=== PATIENT | male | born 1955 | race Hispanic/Latino ===

== ENCOUNTER 2023-09-18 09:54 | Emergency (ER) | payer OTHER ==
[2023-09-18 10:29] LABS: Absolute Lymphocytes (CBC) 1.5 K/uL (0.7-4.9); Absolute Monocytes 0.2 K/uL (0.1-1.3); Absolute Neutrophil 2.3 K/uL (1.8-8.0); Basophils % 0.5 % (0-1.3); Eosinophils % 0.7 % (0-4.4); Hemoglobin 11.8 g/dL (13.6-17.9); Lymphocytes % 37.5 % (15.3-44.8); MCH 32.4 pg (27.0-35.0); MCHC 33.8 g/dL (32.0-36.0); MCV 95.7 fL (80-100); MPV 8.4 fL (7.6-11.3); Monocytes % 5.5 % (3.3-12.3); Neutrophils % 55.8 % (41.7-73.7); Nucleated Red Blood Cells % 0.1 % (0-0); Platelets 135 thou/uL (152-406); RBC Red Blood Cell Count 3.65 M/uL (4.33-5.43); Red Cell Distribution Width 13.8 % (12.1-15.2)
[2023-09-18 10:39] LABS: PT Prothrombin Time 13.5 SECONDS (9.5-12.5); PTT, Activated Partial Thromb 29.4 SECONDS (24.3-36.9); Protime INR 1.23
[2023-09-18 10:48] LABS: Specific Gravity 1.026 (1.005-1.030); Sqamous Epithelial <5 /HPF (None Seen); Urine Bacteria <20 /HPF (<20); Urine Bilirubin NEGATIVE (Negative); Urine Blood Negative (Negative); Urine Clarity Turbid (Clear); Urine Color Yellow (Yellow); Urine Culture Reflex Order NOT NEEDED; Urine Glucose NEGATIVE (Negative); Urine Ketones NEGATIVE (Negative); Urine Microscopic Reflex YN ORDER UMIC; Urine Mucus 2+ /HPF (None Seen); Urine Nitrite NEGATIVE (Negative); Urine Protein 1+ (Negative); Urine Urobilinogen 1+ (Normal); Urine WBC <5 /HPF (<5)
[2023-09-18 10:49] LABS: AST/SGOT 17 U/L (15-37); Albumin 3.3 g/dL (3.4-5.0); Alkaline Phosphatase 76 U/L (45-117); Anion Gap 6.7 mEq/L (5.0-15.0); BUN Blood Urea Nitrogen 24 mg/dL (7-18); Bicarbonate 26 mEq/L (21-32); Bilirubin Direct 0.1 mg/dL (0-0.2); Bilirubin Indirect, Calculated 0.4 mg/dL (0.2-0.8); Bilirubin Total 0.5 mg/dL (0.2-1.0); Globulin 3.2 g/dL (2.3-3.5); Glomerular Filtration Rate 97 ml/min (=/>90); Glucose Level 103 mg/dL (74-106); Potassium 3.7 mEq/L (3.5-5.1); Protein, Total 6.5 g/dL (6.4-8.2); Sodium Level 141 mEq/L (136-145)
[2023-09-18 10:54] LABS: ALT/SGPT < 10 U/L (16-61); Troponin High Sensitivity < 3.0 pg/mL (<58.9)
--- NOTE | 2023-09-18 11:06 | RAD REPORT ---
EXAM DESCRIPTION: RAD - Chest Single View - 09/18/2023 10:46 am CLINICAL HISTORY: weaknes COMPARISON: No comparisons FINDINGS: Lines: None. Lungs: No evidence of edema or pneumonia. Pleural: No significant pleural effusions or pneumothorax. Cardiac: The heart size is within normal limits. Mediastinum: Within normal limits. Bones: No acute fractures. Other: None IMPRESSION: No acute cardiopulmonary disease.
--- NOTE | 2023-09-18 11:39 | RAD REPORT ---
EXAM DESCRIPTION: CT - Head Brain Wo Cont - 09/18/2023 11:34 am CLINICAL HISTORY: WEAKNESS COMPARISON: No comparisons TECHNIQUE: All CT scans are performed using dose optimization technique as appropriate and may inclu de automated exposure control or mA/KV adjustment according to patient size. FINDINGS: No intracranial hemorrhage, hydrocephalus or extra-axial fluid collection.No areas of brai n edema or evidence of midline shift. Age advanced cerebral atrophy. Mild to moderate chronic small v essel ischemic changes. The paranasal sinuses and mastoids are clear. The calvarium is intact. IMPRESSION: No acute intracranial abnormality.
--- NOTE | 2023-09-18 13:33 | EDPHYS ---
Physician Documentation [facility] Name: Gaston Galdamez Age: 67 yrs Sex: Male : 1955 Arrival Date: 09/18/2023 Time: 09:54 Bed 13 Private MD: ED Physician Chaz Chappell HPI: 09/17 10:23 This 67 yrs old Male presents to ER via EMS with complaints of Near Syncope. kb 10:23 Pt is a 67 year old male who was sent in by [facility] staff for weakness that began kb this morning. residential staff reports pt is at baseline mentation, but seems more weak than normal. . Historical: - Allergies: 10:06 No Known Allergies; me1 - PMHx: 10:06 Dementia; Parkinson's disease; me1 - Immunization history:: Adult Immunizations up to date. - Infectious Disease History:: Denies. - Social history:: Smoking status: unknown. ROS: 10:21 Constitutional: As per HPI kb Exam: 10:21 Constitutional: This is a well developed, well nourished patient who is awake, alert, kb and in no acute distress. Head/Face: Normocephalic, atraumatic. ENT: Moist Mucous membranes Cardiovascular: Regular rate Respiratory: Respirations even and unlabored. No increased work of breathing. Talking in full sentences Abdomen/GI: Soft, non-tender. No distention Skin: Warm, dry with normal turgor. Normal color. MS/ Extremity: Pulses equal, no cyanosis. Neurovascular intact. Full, normal range of motion. 10:21 ECG was reviewed by the Attending Physician. 10:22 Neuro: Orientation: no acute changes, per EMS, Motor: moves all fours, kb Vital Signs: 10:02 BP 118 / 82; Pulse 55; Resp 16; Temp 97.9; Pulse Ox 100% on R/A; Weight 65.77 kg; me1 Height 5 ft. 8 in. ; Pain 0/10; 11:00 BP 111 / 68; Pulse 57; Resp 12; Pulse Ox 100% on R/A; me1 12:00 BP 118 / 77; Pulse 55; Resp 18; Pulse Ox 100% on R/A; me1 13:00 BP 114 / 70; Pulse 70; Resp 13; Pulse Ox 100% on R/A; me1 13:54 BP 120 / 74; Pulse 58; Resp 17; Temp 98(TE); Pulse Ox 100% ; me1 10:02 Body Mass Index 22.05 (65.77 kg, 172.72 cm) me1 10:02 Pain Scale: Adult me1 MDM: 09:58 Patient medically screened. kb 10:22 Data reviewed: vital signs, nurses notes. kb 10:24 Historians other than the Patient: EMS: [facility]. kb 13:31 Differential diagnosis: cardiac arrhythmia, generalized weakness, hypovolemia, kb near-syncope. Consideration of Admission/Observation Escalation of care including admission/observation considered. admission considered for weakness, but family states pt is acting normally, labs reassuring. Management of patient was discussed with the following: Leather Coater: Dr Pina boston with discharge home. Counseling: I had a detailed discussion with the patient and/or guardian regarding the historical points, exam findings, and any diagnostic results supporting the discharge/admit diagnosis, lab results, radiology results, the need for outpatient follow up, a family practitioner, to return to the emergency department if symptoms worsen or persist or if there are any questions or concerns that arise at home. ED course: Family at bedside at this time. States pt is acting normally to them. . 04 09:59 Order name: Basic Metabolic Panel; Complete Time: 10:55 kb 09/17 09:59 Order name: CBC with Diff; Complete Time: 10:46 kb 09/17 09:59 Order name: Hepatic Function; Complete Time: 10:55 kb 09/17 09:59 Order name: Magnesium; Complete Time: 10:55 kb 09/17 09:59 Order name: Protime (+inr); Complete Time: 10:46 kb 09/17 09:59 Order name: Ptt, Activated; Complete Time: 10:46 kb 09/17 09:59 Order name: Troponin High Sensitivity; Complete Time: 10:55 kb 09/17 09:59 Order name: Urinalysis w/ reflexes; Complete Time: 10:49 kb 09/17 09:59 Order name: Chest Single View XRAY; Complete Time: 11:15 kb 09/17 11:16 Order name: CT Head Brain wo Cont; Complete Time: 11:46 kb 09/17 12:40 Order name: EKG; Complete Time: 12:41 kb 09/17 09:59 Order name: Cardiac monitoring; Complete Time: 10:22 kb 09/17 09:59 Order name: EKG - Nurse/Tech; Complete Time: 12:40 kb 09/17 09:59 Order name: IV Saline Lock; Complete Time: 10:20 kb 09/17 09:59 Order name: Labs collected and sent; Complete Time: 12:40 kb 09/17 09:59 Order name: NPO; Complete Time: 10:20 kb 09/17 09:59 Order name: O2 Per Protocol; Complete Time: 10:20 kb 09/17 09:59 Order name: O2 Sat Monitoring; Complete Time: 10:20 kb 09/17 12:40 Order name: EKG - Nurse/Tech; Complete Time: 13:16 kb EC:21 Rate is 54 beats/min. Rhythm is regular. QRS [place] is Normal. MT interval is prolonged kb at 314 msec. QRS interval is normal at 72 msec. QT interval is normal at 405 msec. Administered Medications: No medications were administered Disposition Summary: 09/18/23 13:32 Discharge Ordered Notes: Location: Home kb Condition: Stable kb Diagnosis - Weakness kb Followup: kb - With: Emergency Department - When: As needed - Reason: Worsening of condition Followup: kb - With: Private Physician - When: 2 - 3 days - Reason: Recheck today's complaints, Continuance of care, Re-evaluation by your physician Discharge Instructions: - Discharge Summary Sheet kb - Weakness, [id number] kb Forms: - Medication Reconciliation Form kb - Thank You Letter kb - Antibiotic Education kb - Prescription Opioid Use kb - Patient Portal Instructions kb - Leadership Thank You Letter kb Signatures: Dispatcher [employer] Paris Echevarria FNP-C FNP-Donna Bolivar, RN RN me1 Corrections: (The following items were deleted from the chart) 10:00 10:00 Chest Single View+RAD.RAD.BRZ ordered. [facility]
--- NOTE | 2023-09-18 13:33 | ER ---
Nurse's Notes [facility] Name: Gaston Galdamez Age: 67 yrs Sex: Male : 1955 Arrival Date: 09/18/2023 Time: 09:54 Bed 13 Private MD: Diagnosis: Weakness Presentation: 09/17 10:02 Chief complaint: EMS states: toned out for episode of weakness and diaphoresis while me1 sitting. No balance when standing. Coronavirus screen:. Ebola Screen: No symptoms or risks identified at this time. Initial Sepsis Screen: Does the patient meet any 2 criteria? No. Patient's initial sepsis screen is negative. Does the patient have a suspected source of infection? No. Patient's initial sepsis screen is negative. Risk Assessment: Do you want to hurt yourself or someone else? Patient reports no desire to harm self or others. Onset of symptoms was September 18, 2023. 10:02 Method Of Arrival: EMS: [place] [id number] 10:02 Acuity: NAWAF 3 me1 Triage Assessment: 10:06 General: Appears comfortable, well groomed, well developed, well nourished, Behavior is me1 cooperative, appropriate for age, anxious. Pain: Denies pain. Neuro: Level of Consciousness is awake, alert, Oriented to person. Cardiovascular: Capillary refill < 3 seconds. Respiratory: Airway is patent Respiratory effort is even, unlabored, Respiratory pattern is regular, symmetrical. GI: No signs and/or symptoms were reported involving the gastrointestinal system. : No signs and/or symptoms were reported regarding the genitourinary system. Derm: Skin is diaphoretic, Skin is pink. Musculoskeletal: Reports per report patient did not have balance when standing and had sudden onset of weakness. Historical: - Allergies: 10:06 No Known Allergies; me1 - PMHx: 10:06 Dementia; Parkinson's disease; me1 - Immunization history:: Adult Immunizations up to date. - Infectious Disease History:: Denies. - Social history:: Smoking status: unknown. Screenin:14 [facility] ED Fall Risk Assessment (Adult) History of falling in the last 3 months, me1 including since admission No falls in past 3 months (0 pts) Confusion or Disorientation No (0 pts) Intoxicated or Sedated No (0 pts) Impaired Gait No (0 pts) Mobility Assist Device Used No (0 pt) Altered Elimination No (0 pt) Score/Fall Risk Level 0 - 2 = Low Risk Maintained a safe environment, Provided non-skid footwear, Hourly rounding (assess needs \T\ fall precautionary measures) done. Abuse screen: Denies threats or abuse. Nutritional screening: No deficits noted. Tuberculosis screening: No symptoms or risk factors identified. Assessment: 10:14 General: See triage assessment. . me1 Vital Signs: 10:02 BP 118 / 82; Pulse 55; Resp 16; Temp 97.9; Pulse Ox 100% on R/A; Weight 65.77 kg; me1 Height 5 ft. 8 in. ; Pain 0/10; 11:00 BP 111 / 68; Pulse 57; Resp 12; Pulse Ox 100% on R/A; me1 12:00 BP 118 / 77; Pulse 55; Resp 18; Pulse Ox 100% on R/A; me1 13:00 BP 114 / 70; Pulse 70; Resp 13; Pulse Ox 100% on R/A; me1 13:54 BP 120 / 74; Pulse 58; Resp 17; Temp 98(TE); Pulse Ox 100% ; me1 10:02 Body Mass Index 22.05 (65.77 kg, 172.72 cm) me1 10:02 Pain Scale: Adult oh1 ED Course: 09:58 Patient arrived in ED. kb 09:58 Paris Lanza FNP-C is [facility]. kb 09:58 Chaz Chappell MD is Attending Physician. kb 10:01 Donna Cortez, JONATHAN is Primary Nurse. me1 10:06 Triage completed. me1 10:14 Patient has correct armband on for positive identification. Bed in low position. Call oh1 light in reach. Side rails up X2. Provided Education on: POC. Verbalized understanding.. 10:14 Arm band placed on. me1 10:14 No provider procedures requiring assistance completed. Maintain EMS IV. Dressing me1 intact. Good blood return noted. Site clean \T\ dry. Gauge \T\ site: 20g RFA. 10:21 Client placed on continuous cardiac and pulse oximetry monitoring. NIBP monitoring me1 applied. monitor tech on. Pulse ox on. NIBP on. 10:21 Initial lab(s) drawn, by ED staff, sent to lab. EKG done, by ED staff, reviewed by me1 Paris AGRAWAL. 10:38 Repositioned patient. Cleaned of incontinence. jg11 10:38 Urine collected: straight cath specimen, clear, katarina colored. Straight cath inserted, jg11 using sterile technique, Patient tolerated well. 10:48 Chest Single View XRAY In Process Unspecified. EDMS 11:36 CT Head Brain wo Cont In Process Unspecified. EDMS 13:16 EKG done, by ED staff, reviewed by Paris AGRAWAL. me1 14:18 IV discontinued, intact, bleeding controlled, No redness/swelling at site. Pressure me1 dressing applied. Administered Medications: No medications were administered Medication: 10:14 VIS not applicable for this client. me1 Outcome: 13:32 Discharge ordered by . john 14:17 Discharged to home via wheelchair, with family, me1 14:17 Condition: stable 14:17 Discharge instructions given to family, Instructed on discharge instructions, follow up and referral plans. Demonstrated understanding of instructions, follow-up care, 14:18 Patient left the ED. me1 Signatures: Dispatcher [employer] Paris Echevarria, [employer] PARAPROFESSIONAL-C INNOVATIONS PARAPROFESSIONAL-CkDonna Hassan, RN RN me1 John Paul Stallworth jg11
[2023-09-18 17:40] VITALS: BP 120/74; TEMP 98; O2SAT 100
--- NOTE | 2023-09-20 12:46 | EKG ---
Test Date: 2023-09-18 Test Time: 13:13:16 [employer]ather Production Artisan: MEASUREMENT RESULTS: Intervals: Rate: 62 FL: 82 QRSD: 76 QT: 400 QTc: 406 [place]: P: FL: 82 QRS: 58 T: 82 INTERPRETIVE STATEMENTS: Sinus rhythm with short FL Nonspecific ST and T wave abnormality Abnormal ECG No previous ECG available for comparison Electronically Signed On 09-20-23 12:41:44 CDT by John Heller
--- NOTE | 2023-09-20 12:47 | EKG ---
Test Date: 2023-09-18 Test Time: 10:02:52 [employer] Professor: BIPIN MEASUREMENT RESULTS: Intervals: Rate: 54 DC: 314 QRSD: 72 QT: 428 QTc: 405 [place]: P: DC: 314 QRS: 57 T: 73 INTERPRETIVE STATEMENTS: Sinus bradycardia with 1st degree AV block Otherwise normal ECG No previous ECG available for comparison Electronically Signed On 09-20-23 12:42:21 CDT by John Heller
== END 2023-09-18 14:18 | disposition home or self-care (01) ==
LOC: ER 09:54
DX: R53.1 Weakness (principal); R55 Syncope and collapse; G20.A1 Parkinson's disease without dyskinesia, without mention of fluctuations; F02.80 Dementia in other diseases classified elsewhere, unspecified severity, without behavioral disturbance, psychotic disturbance, mood disturbance, and anxiety
CPT/HCPCS: 36415; 51702; 70450; 71045; 80048; 80076; 81001; 83735; 84484; 85025; 85610; 85730; 93005; 99285

== ENCOUNTER 2023-09-18 20:39 | Emergency (ER) | payer OTHER ==
[2023-09-18 21:09] LABS: Absolute Lymphocytes (CBC) 1.7 K/uL (0.7-4.9); Absolute Monocytes 0.3 K/uL (0.1-1.3); Absolute Neutrophil 2.5 K/uL (1.8-8.0); Basophils % 0.5 % (0-1.3); Eosinophils % 0.6 % (0-4.4); Hematocrit 33.4 % (39.6-49.0); Hemoglobin 11.2 g/dL (13.6-17.9); Lymphocytes % 37.3 % (15.3-44.8); MCH 32.2 pg (27.0-35.0); MCHC 33.7 g/dL (32.0-36.0); MCV 95.6 fL (80-100); MPV 9.1 fL (7.6-11.3); Monocytes % 7.5 % (3.3-12.3); Neutrophils % 54.1 % (41.7-73.7); Nucleated Red Blood Cells % 0.1 % (0-0); Platelets 145 thou/uL (152-406); RBC Red Blood Cell Count 3.49 M/uL (4.33-5.43)
[2023-09-18 21:23] LABS: Albumin 3.4 g/dL (3.4-5.0); Anion Gap 6.7 mEq/L (5.0-15.0); Bilirubin Total 0.4 mg/dL (0.2-1.0); Globulin 3.4 g/dL (2.3-3.5); Potassium 3.7 mEq/L (3.5-5.1); Protein, Total 6.8 g/dL (6.4-8.2)
[2023-09-18 21:31] LABS: Renal Epithelial <5 /HPF (None Seen); Specific Gravity 1.025 (1.005-1.030); Sqamous Epithelial <5 /HPF (None Seen); Urine Bacteria <20 /HPF (<20); Urine Bilirubin NEGATIVE (Negative); Urine Blood 3+ (OVER) (Negative); Urine Clarity Extremely Turbid (Clear); Urine Color Yellow (Yellow); Urine Culture Reflex Order NOT NEEDED; Urine Glucose NEGATIVE (Negative); Urine Ketones TRACE (Negative); Urine Micro Reflex YN NO BILL MICROSCOPIC; Urine Mucus 1+ /HPF (None Seen); Urine Nitrite NEGATIVE (Negative); Urine Protein 1+ (Negative); Urine RBC >50 /HPF (None Seen); Urine Urobilinogen 1+ (Normal)
--- NOTE | 2023-09-18 21:55 | EDPHYS ---
Physician Documentation [facility] Name: Gaston Galdamez Age: 67 yrs Sex: Male : 1955 Arrival Date: 09/18/2023 Time: 20:39 Bed 5 Private MD: ED Physician Mg Patton HPI: 09/17 21:28 This 67 yrs old Male presents to ER via EMS with complaints of hematuria. rt 21:28 Patient was seen in the ED earlier today for generalized weakness, had a negative rt workup, workup to include straight catheterization. Patient with back to nursing today, nurse noticed some blood in his diaper. No other acute complaints, symptoms are mild in severity, no other aggravating or elevating factors.. Historical: - Allergies: 20:44 No Known Allergies; jb4 - PMHx: 20:44 Dementia; Parkinson's disease; jb4 - Immunization history:: Adult Immunizations unknown. - Infectious Disease History:: Denies. - Social history:: Smoking status: unknown. - Family history:: not pertinent. ROS: 21:28 Unable to obtain ROS due to baseline dementia, rt Exam: 21:28 Constitutional: This is a well developed, well nourished patient who is awake, alert, rt and in no acute distress. Chest/axilla: Normal chest wall appearance and motion. Nontender with no deformity. No lesions are appreciated. Cardiovascular: Regular rate and rhythm with a normal S1 and S2. No gallops, murmurs, or rubs. Normal PMI, no JVD. No pulse deficits. Respiratory: Lungs have equal breath sounds bilaterally, clear to auscultation and percussion. No rales, rhonchi or wheezes noted. No increased work of breathing, no retractions or nasal flaring. Abdomen/GI: Soft, non-tender, with normal bowel sounds. No distension or tympany. No guarding or rebound. No evidence of tenderness throughout. Skin: Warm, dry with normal turgor. Normal color with no rashes, no lesions, and no evidence of cellulitis. MS/ Extremity: Pulses equal, no cyanosis. Neurovascular intact. Full, normal range of motion. Vital Signs: 20:41 BP 130 / 77; Pulse 57; Resp 16; Temp 97.5; Pulse Ox 97% on R/A; jb4 21:00 BP 112 / 77; Pulse 56; Resp 16; Pulse Ox 99% on R/A; jb4 22:14 BP 120 / 78; Pulse 58; Resp 16; Pulse Ox 100% on R/A; jb4 MDM: 20:42 Patient medically screened. rt 23:27 Differential Diagnosis UTI, traumatic catheterization. Data reviewed: vital signs, lab rt test result(s). Test considered but Not performed: CT: Clear chronologic association with catheterization, do not believe that CT scan is indicated.. Care significantly affected by the following chronic conditions: Dementia. Counseling: I had a detailed discussion with the patient and/or guardian regarding the historical points, exam findings, and any diagnostic results supporting the discharge/admit diagnosis, lab results, the need for outpatient follow up, to return to the emergency department if symptoms worsen or persist or if there are any questions or concerns that arise at home. 09/17 20:43 Order name: CBC with Diff; Complete Time: 21:32 rt 09/17 20:43 Order name: CMP; Complete Time: 21:32 rt 09/17 20:43 Order name: UAM; Complete Time: 21:32 rt Administered Medications: 22:08 Drug: Cephalexin PO 500 mg PO once Route: PO; jb4 22:08 Follow up: Response: Medication administered at discharge. jb4 Disposition Summary: 09/18/23 21:54 Discharge Ordered Notes: Location: Home rt Condition: Stable rt Diagnosis - Gross hematuria rt Followup: rt - With: Private Physician - When: 2 - 3 days - Reason: Discharge Instructions: - Discharge Summary Sheet rt - Hematuria, Adult rt Forms: - Medication Reconciliation Form rt - Thank You Letter rt - Antibiotic Education rt - Prescription Opioid Use rt - Patient Portal Instructions rt - Leadership Thank You Letter rt Prescriptions: - Cephalexin 500 mg Oral capsule - take 1 capsule ORAL route every 8 hours for 7 days; 21 capsule; Refills: 0, rt Product Selection Permitted Signatures: Dispatcher [employer] Joel Amaya RN RN jb4 Mg Patton MD MD rt Corrections: (The following items were deleted from the chart) 20:44 20:44 CBC+H.LAB.BRZ ordered. EDMS EDMS 20:44 20:44 COMPREHENSIVE METABOLIC PANEL+C.LAB.BRZ ordered. EDMS EDMS 20:44 20:44 Urinalysis W/Microscopic+U.LAB.BRZ ordered. EDMS EDMS
--- NOTE | 2023-09-18 21:55 | ER ---
Nurse's Notes [facility] Name: Gaston Galdamez Age: 67 yrs Sex: Male : 1955 Arrival Date: 09/18/2023 Time: 20:39 Bed 5 Private MD: Diagnosis: Gross hematuria Presentation: 09/17 20:41 Chief complaint: EMS states: Pt was sent here this morning for sweating and AMS, jb4 discharged back to [facility]. The nurse was changing him tonight and noticed blood in the urine. Coronavirus screen: At this time, the client does not indicate any symptoms associated with coronavirus-19. Ebola Screen: No symptoms or risks identified at this time. Initial Sepsis Screen: Does the patient meet any 2 criteria? No. Patient's initial sepsis screen is negative. Does the patient have a suspected source of infection? No. Patient's initial sepsis screen is negative. Risk Assessment: Do you want to hurt yourself or someone else? Patient reports no desire to harm self or others. Onset of symptoms was September 18, 2023. Transition of care: patient was not received from another setting of care. 20:41 Method Of Arrival: EMS: [facility] jb4 20:41 Acuity: NAWAF 3 jb4 Triage Assessment: 20:44 General: Appears in no apparent distress. comfortable, Behavior is calm, cooperative, jb4 appropriate for age. Pain: Unable to use pain scale. FLACC scale score is 0 out of 10. EENT: No signs and/or symptoms were reported regarding the EENT system. Neuro: Level of Consciousness is awake, alert, Oriented to person. Cardiovascular: Patient's skin is warm and dry. Respiratory: Airway is patent Respiratory effort is even, unlabored, Respiratory pattern is regular, symmetrical. GI: No signs and/or symptoms were reported involving the gastrointestinal system. : Reports Staff at [facility] reports blood in urine. Derm: Skin is intact, Skin is pink, warm \T\ dry. Musculoskeletal: Circulation, motion, and sensation intact. Range of motion: intact in all extremities. Historical: - Allergies: 20:44 No Known Allergies; jb4 - PMHx: 20:44 Dementia; Parkinson's disease; jb4 - Immunization history:: Adult Immunizations unknown. - Infectious Disease History:: Denies. - Social history:: Smoking status: unknown. - Family history:: not pertinent. Screenin:47 [facility] ED Fall Risk Assessment (Adult) History of falling in the last 3 months, jb4 including since admission No falls in past 3 months (0 pts) Confusion or Disorientation Yes (5 pts) Intoxicated or Sedated No (0 pts) Impaired Gait No (0 pts) Mobility Assist Device Used No (0 pt) Altered Elimination No (0 pt) Score/Fall Risk Level 3 or more points = High Risk Oriented to surroundings, Maintained a safe environment. Abuse screen: Denies threats or abuse. Nutritional screening: No deficits noted. Tuberculosis screening: No symptoms or risk factors identified. Assessment: 20:47 Reassessment: See triage note. jb4 21:12 : Urine is cloudy, blood tinged. jb4 22:08 Reassessment: Pt remains A\T\Ox1. D/c and follow up instructions given to family. jb4 Verbalized understanding of instructions. Vital Signs: 20:41 BP 130 / 77; Pulse 57; Resp 16; Temp 97.5; Pulse Ox 97% on R/A; jb4 21:00 BP 112 / 77; Pulse 56; Resp 16; Pulse Ox 99% on R/A; jb4 22:14 BP 120 / 78; Pulse 58; Resp 16; Pulse Ox 100% on R/A; jb4 ED Course: 20:41 Patient arrived in ED. jb4 20:42 Mg Patton MD is Attending Physician. rt 20:44 Triage completed. jb4 20:44 Arm band placed on right wrist. jb4 20:47 Patient has correct armband on for positive identification. Bed in low position. Call jb4 light in reach. Side rails up X 1. Provided Education on: Family educated on plan of care.. 20:47 No provider procedures requiring assistance completed. jb4 21:12 Joel Macdonald, JONATHAN is Primary Nurse. jb4 21:12 Initial lab(s) drawn, by me, sent to lab. Urine collected: straight cath specimen, jb4 katarina colored, blood tinged, Amount Returned: 200mL. 22:08 IV discontinued, intact, bleeding controlled, No redness/swelling at site. Pressure jb4 dressing applied. Administered Medications: 22:08 Drug: Cephalexin PO 500 mg PO once Route: PO; jb4 22:08 Follow up: Response: Medication administered at discharge. jb4 Medication: 20:47 VIS not applicable for this client. jb4 Outcome: 21:54 Discharge ordered by . rt 22:08 Discharged to longterm. jb4 22:08 Condition: stable 22:08 Discharge instructions given to patient, Instructed on discharge instructions, follow up and referral plans. medication usage, Demonstrated understanding of instructions, follow-up care, medications, Prescriptions given X 1, 22:15 Patient left the ED. jb4 Signatures: Joel Macdonald RN RN jb4 Mg Patton MD MD rt
[2023-09-18] MEDS ORDERED: CEPHALEXIN 250 MG CAP ONE (22:00)
[2023-09-19 05:00] VITALS: BP 120/78; TEMP 97.5; O2SAT 100
== END 2023-09-18 22:15 | disposition home or self-care (01) ==
LOC: ER 20:39
DX: R31.0 Gross hematuria (principal); G20.A1 Parkinson's disease without dyskinesia, without mention of fluctuations; F02.80 Dementia in other diseases classified elsewhere, unspecified severity, without behavioral disturbance, psychotic disturbance, mood disturbance, and anxiety
CPT/HCPCS: 36415; 80053; 81001; 85025; 99284

== ENCOUNTER 2024-02-12 07:49 | Emergency (ER) | payer OTHER ==
--- NOTE | 2024-02-12 08:39 | RAD REPORT ---
EXAM DESCRIPTION: CT - Head C Spine Mpr Wo Con - 02/12/2024 8:28 am CLINICAL HISTORY: Head and neck injury status post fall. Head and neck pain COMPARISON: November [address] TECHNIQUE: Computed axial tomography of the head and cervical spine was obtained. Sagittal and coronal reconstruction was performed. All CT scans are performed using dose optimization technique as appropriate and may include automated exposure control or mA/KV adjustment according to patient size. FINDINGS: An intracranial bleed is not seen. The ventricles are normal in caliber. Mild to moderate low-density within periventricular, subcortical white matter probably ischemic stoddard es secondary small vessel disease [id number] cerebral atrophy is present. An extra-axial fluid collection is not noted. Fluid within the visualized sinuses and mastoids is not seen A cervical fracture is not visualized. No dislocation is noted. Mild anterior subluxation C7 on T1 ma y chronic IMPRESSION: No acute intracranial abnormality is seen. A cervical fracture is not visualized. If the patient continues to have symptoms to suggest intracranial /spinal cord pathology then MRI wou ld be recommended
--- NOTE | 2024-02-12 09:17 | RAD REPORT ---
EXAM DESCRIPTION: RAD - Pelvis - 02/12/2024 8:51 am CLINICAL HISTORY: Pelvic pain status post injury FINDINGS: Osteoporosis Junction of medial aspect of the right femoral head and neck has an unusual appearance probably secon liana to positioning. If the patient has clinical symptoms to suggest a right hip fracture then jacquelina harish x-rays of the right hip would be recommended Otherwise, no fracture or dislocation noted
--- NOTE | 2024-02-12 10:44 | RAD REPORT ---
EXAM DESCRIPTION: CT - Pelvis Wo Cont - 02/12/2024 10:30 am CLINICAL HISTORY: Pelvic pain status post fall COMPARISON: X-ray February 12, 2024 TECHNIQUE: Computed axial tomography of the pelvis was obtained. Coronal and sagittal reconstruction performed All CT scans are performed using dose optimization technique as appropriate and may include automated exposure control or mA/KV adjustment according to patient size. FINDINGS: No fracture or dislocation is seen. No significant hip joint effusion Rectum distended with stool measuring 9.5 centimeters Moderate to marked prostatic enlargement IMPRESSION: No fracture seen
--- NOTE | 2024-02-12 11:05 | EDPHYS ---
Physician Documentation [facility] Name: Gaston Galdamez Age: 68 yrs Sex: Male : 1955 Arrival Date: 02/12/2024 Time: 07:49 Bed 8 Private MD: ED Physician Mg Patton HPI: 02/11 11:26 This 68 yrs old Male presents to ER via EMS with complaints of Fall Injury. rt 11:26 History limited due to patient with advanced dementia. Patient reportedly had a fall rt [facility] the [facility] today. No reports of injury. No other reported complaints, symptoms are mild in severity, no other aggravating elevating factors.. Historical: - Allergies: 07:57 No Known Allergies; ko1 - Home Meds: :57 Unable to obtain [Active]; ko1 - PMHx: :57 Dementia; Parkinson's disease; ko1 - PSHx: :57 Unable to Obtain; ko1 - Immunization history:: Adult Immunizations unknown. - Infectious Disease History:: unknown. - Social history:: Smoking status: unknown. ROS: 11:26 Unable to obtain ROS due to baseline dementia, rt Exam: 11:26 Constitutional: This is a well developed, well nourished patient who is awake, alert, rt and in no acute distress. Head/Face: Normocephalic, atraumatic. Chest/axilla: Normal chest wall appearance and motion. Nontender with no deformity. No lesions are appreciated. Cardiovascular: Regular rate and rhythm with a normal S1 and S2. No gallops, murmurs, or rubs. Normal PMI, no JVD. No pulse deficits. Respiratory: Lungs have equal breath sounds bilaterally, clear to auscultation and percussion. No rales, rhonchi or wheezes noted. No increased work of breathing, no retractions or nasal flaring. Abdomen/GI: Soft, non-tender, with normal bowel sounds. No distension or tympany. No guarding or rebound. No evidence of tenderness throughout. Skin: Warm, dry with normal turgor. Normal color with no rashes, no lesions, and no evidence of cellulitis. MS/ Extremity: Pulses equal, no cyanosis. Neurovascular intact. Full, normal range of motion. Vital Signs: 07:56 BP 121 / 74; Pulse 70; Resp 16; Temp 97; Pulse Ox 100% on R/A; ko1 09:10 BP 121 / 62; Pulse 73; Resp 16; Pulse Ox 100% ; ko1 12:05 BP 118 / 68; Pulse 74; Resp 14; Pulse Ox 99% ; ko1 MDM: 08:00 Patient medically screened. rt 11:26 Differential diagnosis: Fall, fracture, contusion. Data reviewed: vital signs, nurses rt notes, radiologic studies. Independent interpretation of the following test(s) in the Emergency Department CT Scan: My interpretation is No intracranial hemorrhage seen on interpretation of CT scan images. Test considered but Not performed: Other Details No reports of syncope, loss of consciousness, EKG, labs not indicated. Care significantly affected by the following chronic conditions: Parkinson's disease. Counseling: I had a detailed discussion with the patient and/or guardian regarding the historical points, exam findings, and any diagnostic results supporting the discharge/admit diagnosis, radiology results, the need for outpatient follow up. 02/11 08:04 Order name: CT Head C Spine; Complete Time: 09:20 rt 02/11 08:04 Order name: Pelvis XRAY; Complete Time: 09:20 rt 02/11 09:22 Order name: CT Pelvis wo Cont; Complete Time: 10:44 rt Administered Medications: No medications were administered Disposition Summary: 02/12/24 11:04 Discharge Ordered Notes: Location: Home rt Problem: new rt Symptoms: have improved rt Condition: Stable rt Diagnosis - Mechanical fall rt Followup: rt - With: Private Physician - When: 2 - 3 days - Reason: Discharge Instructions: - Discharge Summary Sheet rt - Fall Prevention in the Home, Adult rt Forms: - Medication Reconciliation Form rt - Antibiotic Education rt - Prescription Opioid Use rt - Patient Portal Instructions rt - Leadership Thank You Letter rt Signatures: Dispatcher [employer] Sarah Dyer, JONATHAN RN ko1 Mg Patton MD MD rt
--- NOTE | 2024-02-12 11:05 | ER ---
Nurse's Notes [facility] Name: Gaston Galdamez Age: 68 yrs Sex: Male : 1955 Arrival Date: 02/12/2024 Time: 07:49 Bed 8 Private MD: Diagnosis: Mechanical fall Presentation: 02/11 07:56 Chief complaint: EMS states: called to [facility] for fall from bed. ko1 Patient has severe dementia and is macedonian speaking only. No apparent injuries. Coronavirus screen: At this time, the client does not indicate any symptoms associated with coronavirus-19. Ebola Screen: No symptoms or risks identified at this time. Initial Sepsis Screen: Does the patient meet any 2 criteria? No. Patient's initial sepsis screen is negative. Does the patient have a suspected source of infection? No. Patient's initial sepsis screen is negative. Risk Assessment: Do you want to hurt yourself or someone else? Patient reports no desire to harm self or others. Onset of symptoms was February 12, 2024. Transition of care: patient was received from another setting of care (long-term care facility), [place]. 07:56 Method Of Arrival: EMS: [facility] ko1 07:56 Acuity: NAWAF 3 ko1 Triage Assessment: 07:57 General: Appears in no apparent distress. Behavior is calm. Pain: Unable to use pain ko1 scale. Does not appear to understand pain scale. Historical: - Allergies: 07:57 No Known Allergies; ko1 - Home Meds: 07:57 Unable to obtain [Active]; ko1 - PMHx: 07:57 Dementia; Parkinson's disease; ko1 - PSHx: 07:57 Unable to Obtain; ko1 - Immunization history:: Adult Immunizations unknown. - Infectious Disease History:: unknown. - Social history:: Smoking status: unknown. Screenin:00 [facility] ED Fall Risk Assessment (Adult) History of falling in the last 3 months, ko1 including since admission Yes- single mechanical fall (1 pt) Confusion or Disorientation Yes (5 pts) Intoxicated or Sedated No (0 pts) Impaired Gait Yes (1 pt) Mobility Assist Device Used Yes (1 pt) Altered Elimination No (0 pt) Score/Fall Risk Level 3 or more points = High Risk Oriented to surroundings, Maintained a safe environment, Educated pt \T\ family on fall prevention, incl call for assistance when getting out of bed, Assessed \T\ reinforced patient's understanding of fall precautions, Provided non-skid footwear, Hourly rounding (assess needs \T\ fall precautionary measures) done, Used ambulatory aids as needed (educated on \T\ assisted with), Used gait belt as appropriate Implemented a Fall Risk Plan of Care, Apply high fall risk patient identification: yellow non skid footwear/ fall signage, Remained w/in arm's length of patient and in sight while toileting, Offered frequent toileting (1:1 observation), Remained with patient while ambulating, Utilized family, sitter, or virtual radiology tech as indicated. Abuse screen: Denies threats or abuse. Denies injuries from another. Nutritional screening: No deficits noted. Tuberculosis screening: No symptoms or risk factors identified. Assessment: 08:00 Reassessment: See triage assessment. ko1 09:01 General: Appears in no apparent distress. comfortable, Behavior is calm, cooperative. rs5 Pain: Unable to use pain scale. Patient is disoriented. Neuro: Level of Consciousness is awake, alert, Oriented to person. Cardiovascular: Patient's skin is warm and dry. Respiratory: Airway is patent Respiratory effort is even, unlabored, Respiratory pattern is regular, symmetrical. GI: Abdomen is round non-distended, Abd is soft and non tender X 4 quads. : No signs and/or symptoms were reported regarding the genitourinary system. EENT: No signs and/or symptoms were reported regarding the EENT system. Derm: Skin is intact, Skin is pink, warm \T\ dry. no signs of injury noted. 10:10 Reassessment: Patient and/or family updated on plan of care and expected duration. Pain rs5 level reassessed. 11:18 Reassessment: pt up for discharge, [place] custodial contacted for transport, ETA rs5 40 min, charge nurse notified . Vital Signs: 07:56 BP 121 / 74; Pulse 70; Resp 16; Temp 97; Pulse Ox 100% on R/A; ko1 09:10 BP 121 / 62; Pulse 73; Resp 16; Pulse Ox 100% ; ko1 12:05 BP 118 / 68; Pulse 74; Resp 14; Pulse Ox 99% ; ko1 ED Course: 07:50 Patient arrived in ED. ko1 07:57 Triage completed. ko1 07:57 Arm band placed on right wrist. Patient placed in an exam room, on a stretcher, on ko1 pulse oximetry, Patient notified of wait time. 08:00 Mg Patton MD is Attending Physician. rt 08:00 Patient has correct armband on for positive identification. Fall risk band placed. ko1 Placed in gown. Bed in low position. Call light in reach. Side rails up X2. Provided Education on: labs. Client placed on continuous cardiac and pulse oximetry monitoring. NIBP monitoring applied. laboratory monitor on. Door closed. Noise minimized. Lights dimmed. Warm blanket given. Pillow given. 08:00 No provider procedures requiring assistance completed. Patient did not have IV access ko1 during this emergency room visit. 08:02 Sarah Collins, RN is Primary Nurse. ko1 08:30 CT Head C Spine In Process Unspecified. EDMS 08:52 Pelvis XRAY In Process Unspecified. EDMS 10:32 CT Pelvis wo Cont In Process Unspecified. EDMS Administered Medications: No medications were administered Medication: 11:21 VIS not applicable for this client. rs5 Outcome: 11:04 Discharge ordered by . rt 12:05 Discharged to custodial. ko1 12:05 Condition: stable 12:05 Discharge instructions given to custodial, EMS, Instructed on discharge instructions, follow up and referral plans. Demonstrated understanding of instructions, follow-up care, 12:09 Patient left the ED. ko1 Signatures: Dispatcher [employer] EDMS Sarah Collins, RN RN ko1 Mg Patotn MD MD rt Jose Goff RN RN rs5
[2024-02-12 12:14] VITALS: TEMP 97
[2024-02-12 12:17] VITALS: BP 118/68; O2SAT 99
== END 2024-02-12 12:09 | disposition home or self-care (01) ==
LOC: ER 07:49
DX: R10.2 Pelvic and perineal pain (principal); W06.XXXA Fall from bed, initial encounter; Y92.122 Bedroom in nursing home as the place of occurrence of the external cause; G20.A1 Parkinson's disease without dyskinesia, without mention of fluctuations; F02.80 Dementia in other diseases classified elsewhere, unspecified severity, without behavioral disturbance, psychotic disturbance, mood disturbance, and anxiety
CPT/HCPCS: 70450; 72125; 72170; 72192; 99284